=== PATIENT | female | born 1935 | race Two or more races ===

== ENCOUNTER 2016-04-29 10:02 | Emergency (ER) | payer MEDICARE, OTHER ==
[2016-04-29] MEDS ORDERED: MAALOX/LIDO2%VISC/SIMETHICONE 40 ML BOT ONE (10:31)
[2016-04-29 10:33] LABS: ABSOLUTE NEUTROPHIL COUNT 4.6 K/mm3 (1.8-7.7); BASO # 0.1 K/mm3 (0.0-0.2); BASO % 0.8 % (0.2-1.0); EOS # 0.2 (0.0-0.5); EOS % 2.8 % (0.9-2.9); HEMATOCRIT 32.1 % (37.0-47.0); HEMOGLOBIN 10.6 gm/l (12.0-16.0); IMM NEUT% 0.3 % (0-1); LYMPH # 1.1 (1.0-4.8); LYMPH % 17.2 % (15-45); MEAN CELL VOLUME 89.7 fl (81.0-99.0); MEAN CORPUSCULAR HEMOGLOBIN 29.6 pg (27.0-31.0); MEAN PLATELET VOLUME 11.4 fl (7.4-10.4); MONO # 0.4 (0.0-0.8); MONO % 6.6 % (4-12); NEUT % 72.3 % (43-75); PLATELET COUNT 219 K/mm3 (130-400); RED CELL DISTRIBUTION WIDTH 12.3 % (11.5-14.5)
[2016-04-29 10:46] LABS: ALB/GLOB RATIO 0.9 (>1.0); ALBUMIN 3.8 gm/dL (3.5-5.7); CALCIUM 9.5 mg/dL (8.6-10.3)
[2016-04-29 10:52] LABS: TROPONIN I 0.01 ng/ml (0.0-0.06)
--- NOTE | 2016-04-29 10:56 | RAD ---
Name: MARINO FRAZIER Exam: Two-view chest Comparison: 04/08/2013 Clinical history: Chest pain Findings: 2 views of the chest are submitted. The heart mediastinum and hilar structures are within normal limits. There is no failure, infiltrate, pleural effusion or pneumothorax. Regional skeleton is within normal limits. Impression: No acute cardiopulmonary process
[2016-04-29] MEDS ORDERED: DIAZEPAM 5 MG/ML SYRINGE 2 ML ONE (11:03)
== END 2016-04-29 12:07 | disposition home or self-care (01) ==
LOC: ED 10:02
DX: K21.0 Gastro-esophageal reflux disease with esophagitis (principal); R42 Dizziness and giddiness; E11.9 Type 2 diabetes mellitus without complications; I10 Essential (primary) hypertension; Z79.4 Long term (current) use of insulin; Z79.899 Other long term (current) drug therapy
CPT/HCPCS: 85025; 82553; 80053; 84484; 71020; 99284; 96374; 93005; 99283; A9270; J3360